=== PATIENT | female | born 1995 | race Caucasian/White ===

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

== ENCOUNTER 2017-09-22 10:42 | Emergency (ER) | payer OTHER ==
[2017-09-22 10:49] VITALS: RESP 16
[2017-09-22] MEDS ORDERED: NS 1,000 ML IV ONE ×2 (11:06→18:23)
--- NOTE | 2017-09-22 11:06 | EDPHY ---
H & P Stated Complaint: h/a, chills, bodyaches x 2 days Source: Patient Exam Limitations: No limitations - Personal History LMP (Females 10-55): Unknown Current Tetanus/Diphtheria Vaccine: No Current Tetanus Diphtheria and Acellular Pertussis (TDAP): No Tetanus Vaccine Date: WITHIN 10 YRS - Medical/Surgical History Hx Asthma: No Hx Chronic Respiratory Disease: No Hx Diabetes: No Hx Cardiac Disease: No Hx Renal Disease: No Hx Cirrhosis: No Hx Alcoholism: No Hx HIV/AIDS: No Hx Splenectomy or Spleen Trauma: No Other PMH: ANXIETY/DEPRESSION, DELAYED GASTRIC EMPTY - Social History Smoking Status: Never smoked Time Seen by Provider: 09/22/17 11:05 HPI/ROS: CHIEF COMPLAINT: Fever, chills, myalgias, headache HISTORY OF PRESENT ILLNESS: The patient presents to the ED with a 2 day history of fever, chills, myalgias and headache. The patient denies cough, abdominal pain, vomiting or diarrhea. The patient denies dysuria. The patient reportedly has been taking Tylenol and ibuprofen with minimal improvement of her symptoms. The patient denies significant past medical history. The patient reports her headache is mild in nature. She does not have neck stiffness. She denies any numbness or weakness. She denies additional acute complaints. REVIEW OF SYSTEMS: A comprehensive 10 point review of systems is otherwise negative aside from elements mentioned in the history of present illness. (Allen Holguin) - Physical Exam Exam: General Appearance: Alert, no distress Eyes: Pupils equal and round no pallor or injection ENT, Mouth: Mucous membranes moist Respiratory: There are no retractions, lungs are clear to auscultation Cardiovascular: Regular rate and rhythm Gastrointestinal: Abdomen is soft and nontender, no masses, bowel sounds normal Neurological: A&O, normal motor function, normal sensory exam, normal cranial nerves Skin: Warm and dry, no rashes Musculoskeletal: Neck is supple nontender Extremities: symmetrical, full range of motion (lAlen Holguin) Constitutional: Initial Vital Signs Temperature (C) 37.3 C 09/22/17 10:46 Heart Rate 108 H 09/22/17 10:46 Respiratory Rate 16 09/22/17 10:46 Blood Pressure 88/60 L 09/22/17 10:46 O2 Sat (%) 97 09/22/17 10:46 O2 Delivery Mode Room Air Allergies/Adverse Reactions: FERRAHEME Allergy (Uncoded 09/22/17 10:45) Home Medications: Medication Instructions Recorded [place] Carbonate 09/22/17 Medical Decision Making - Diagnostics Imaging Results: Imaging Impressions Lumbar Puncture 09/22/17 00:00 Impression: 1. Lumbar puncture performed at L3-L4. 2. Clear CSF obtained. 3. Opening pressure is 7. ED Course/Re-evaluation: The patient presents to the ED for evaluation of a headache and reported fever to 101 degrees. The patient has had no significant infectious symptoms aside from myalgias. She denies fever, cough or congestion. She has no history of rhinorrhea, vomiting or diarrhea. She denies dysuria. The patient does complain of some diffuse myalgias in her back primarily in her lumbar paraspinal muscles. The patient denies any arthralgias or obvious joint effusions. She denies any recent travel outside the [place] or antibiotic use. The patient was noted to have only mild pain with full forward flexion on neck exam. I discussed with the patient the risks and benefits of performing lumbar puncture. I am suspicious that this is most likely a viral syndrome however have informed the family that I cannot fully exclude the possibility of bacterial meningitis. A LP has been ordered under fluoroscopic guidance. The patient will be turned over to Dr. Manzano at shift change pending the results of the patient's lumbar puncture results. The patient was medicated with IV Toradol and normal saline in the emergency department. (Allen Holguin) Differential Diagnosis: Differential diagnosis considered includes viral syndrome, viral meningitis, bacterial meningitis, influenza, pyelonephritis (Allen Holguin) Other Provider: Patient was signed out to me by Dr. Holguin at 3:00 p.m. Pending results of lumbar puncture with plan for likely discharge home with diagnosis of viral syndrome if no abnormalities are seen. The lumbar puncture analysis reveals no white blood cells and a negative Gram stain so I do not think this represents meningitis. On re-evaluation, the patient still has a mild fever and complains of diffuse body aches but she has no neurologic abnormalities and would like to go home. I discussed our findings in detail with the patient's mother who is a physician she is in agreement with the plan. We did discuss that neuro imaging with CT scan or MRI briefly, but she would prefer to avoid this for now. We discussed strict return precautions. (Jason Manzano) - Data Points Laboratory Results: Laboratory Results 09/22/17 11:18 09/22/17 11:18 09/22/17 09/22/17 09/22/17 15:35 13:41 12:27 WBC RBC Hgb Hct MCV MCH MCHC RDW Plt Count MPV Neut % (Auto) Lymph % (Auto) [place] % (Auto) Eos % (Auto) Baso % (Auto) Nucleat RBC Rel Count Absolute Neuts (auto) Absolute Lymphs (auto) Absolute Monos (auto) Absolute Eos (auto) Absolute Basos (auto) Absolute Nucleated RBC Immature Gran % Immature Gran # Sodium Potassium Chloride Carbon Dioxide Anion Gap BUN Creatinine Estimated GFR Glucose Calcium Beta HCG, Qual Urine Color YELLOW Urine Appearance CLEAR Urine pH 8.0 H (5.0-7.5) Ur Specific [place] 1.013 (1.002-1.030) Urine Protein NEGATIVE (NEGATIVE) Urine Ketones NEGATIVE (NEGATIVE) Urine Blood NEGATIVE (NEGATIVE) Urine Nitrate NEGATIVE (NEGATIVE) Urine Bilirubin NEGATIVE (NEGATIVE) Urine Urobilinogen NEGATIVE EU EU (0.2-1.0) Ur Leukocyte Esterase TRACE H (NEGATIVE) Urine RBC 1-3 /hpf /hpf (0-3) Urine WBC 3-5 /hpf H /hpf (0-3) Ur Epithelial Cells TRACE /lpf /lpf (NONE-1+) Urine Mucus 1+ /lpf /lpf (NONE-1+) Urine Glucose NEGATIVE (NEGATIVE) CSF Tube Number 1 4 CSF Appearance CLEAR CLEAR (CLEAR) (CLEAR) CSF Color COLORLESS COLORLESS (COLORLESS) (COLORLESS) CSF Supernatant COLORLESS COLORLESS (COLORLESS) (COLORLESS) CSF WBC 3 /mm3 /mm3 0 /mm3 /mm3 (0-5) (0-5) CSF RBC 0 /mm3 /mm3 8 /mm3 H /mm3 (0-0) (0-0) CSF Glucose 53 mg/dL mg/dL (50-75) CSF Total Protein 24 mg/dL mg/dL (12-60) Nasal Influenza A PCR Nasal Influenza B PCR 09/22/17 09/22/17 09/22/17 11:18 11:18 11:18 WBC 11.40 10^3/uL H 10^3/uL (3.80-9.50) RBC 4.83 10^6/uL 10^6/uL (4.18-5.33) Hgb 13.4 g/dL g/dL (12.6-16.3) Hct 40.1 % % (38.0-47.0) MCV 83.0 fL fL (81.5-99.8) MCH 27.7 pg L pg (27.9-34.1) MCHC 33.4 g/dL g/dL (32.4-36.7) RDW 13.2 % % (11.5-15.2) Plt Count 217 10^3/uL 10^3/uL (150-400) MPV 10.6 fL fL (8.7-11.7) Neut % (Auto) 87.9 % H % (39.3-74.2) Lymph % (Auto) 6.0 % L % (15.0-45.0) [place] % (Auto) 5.4 % % (4.5-13.0) Eos % (Auto) 0.0 % L % (0.6-7.6) Baso % (Auto) 0.2 % L % (0.3-1.7) Nucleat RBC Rel Count 0.0 % % (0.0-0.2) Absolute Neuts (auto) 10.03 10^3/uL H 10^3/uL (1.70-6.50) Absolute Lymphs (auto) 0.68 10^3/uL L 10^3/uL (1.00-3.00) Absolute Monos (auto) 0.61 10^3/uL 10^3/uL (0.30-0.80) Absolute Eos (auto) 0.00 10^3/uL L 10^3/uL (0.03-0.40) Absolute Basos (auto) 0.02 10^3/uL 10^3/uL (0.02-0.10) Absolute Nucleated RBC 0.00 10^3/uL 10^3/uL (0-0.01) Immature Gran % 0.5 % % (0.0-1.1) Immature Gran # 0.06 10^3/uL 10^3/uL (0.00-0.10) Sodium 138 mEq/L mEq/L (135-145) Potassium 4.1 mEq/L mEq/L (3.5-5.2) Chloride 101 mEq/L mEq/L (97-110) Carbon Dioxide 24 mEq/l mEq/l (22-31) Anion Gap 13 mEq/L mEq/L (8-16) BUN 9 mg/dL mg/dL (7-23) Creatinine 0.6 mg/dL mg/dL (0.6-1.0) Estimated GFR > 60 Glucose 93 mg/dL mg/dL (70-100) Calcium 8.7 mg/dL mg/dL (8.5-10.4) Beta HCG, Qual NEGATIVE Urine Color Urine Appearance Urine pH Ur Specific [place] Urine Protein Urine Ketones Urine Blood Urine Nitrate Urine Bilirubin Urine Urobilinogen Ur Leukocyte Esterase Urine RBC Urine WBC Ur Epithelial Cells Urine Mucus Urine Glucose CSF Tube Number CSF Appearance CSF Color CSF Supernatant CSF WBC CSF RBC CSF Glucose CSF Total Protein Nasal Influenza A PCR Nasal Influenza B PCR 09/22/17 11:18 WBC RBC Hgb Hct MCV MCH MCHC RDW Plt Count MPV Neut % (Auto) Lymph % (Auto) [place] % (Auto) Eos % (Auto) Baso % (Auto) Nucleat RBC Rel Count Absolute Neuts (auto) Absolute Lymphs (auto) Absolute Monos (auto) Absolute Eos (auto) Absolute Basos (auto) Absolute Nucleated RBC Immature Gran % Immature Gran # Sodium Potassium Chloride Carbon Dioxide Anion Gap BUN Creatinine Estimated GFR Glucose Calcium Beta HCG, Qual Urine Color Urine Appearance Urine pH Ur Specific [place] Urine Protein Urine Ketones Urine Blood Urine Nitrate Urine Bilirubin Urine Urobilinogen Ur Leukocyte Esterase Urine RBC Urine WBC Ur Epithelial Cells Urine Mucus Urine Glucose CSF Tube Number CSF Appearance CSF Color CSF Supernatant CSF WBC CSF RBC CSF Glucose CSF Total Protein Nasal Influenza A PCR NEGATIVE FOR FLU A (NEGATIVE) Nasal Influenza B PCR NEGATIVE FOR FLU B (NEGATIVE) Microbiology Results: MICROBIOLOGY 09/22/17 15:35 Cerebral Spinal Fluid Gram Stain - Final Medications Given: Discontinued Medications Acetaminophen (Tylenol) 1,000 mg PO EDNOW ONE Stop: 09/22/17 17:09 Last Admin: 09/22/17 17:11 Dose: 1,000 mg Diphenhydramine HCl (Benadryl Injection) 25 mg IVP EDNOW ONE Stop: 09/22/17 16:20 Last Admin: 09/22/17 16:26 Dose: 25 mg Sodium Chloride (Ns) 1,000 mls @ 0 mls/hr IV ONCE ONE; Wide Open PRN Reason: Protocol Stop: 09/22/17 11:07 Last Admin: 09/22/17 11:21 Dose: 1,000 mls Sodium Chloride (Ns) 1,000 mls @ 0 mls/hr IV ONCE ONE; Wide Open PRN Reason: Protocol Stop: 09/22/17 11:07 Last Admin: 09/22/17 11:21 Dose: 1,000 mls Ketorolac Tromethamine (Toradol) 30 mg IVP EDNOW ONE Stop: 09/22/17 11:53 Last Admin: 09/22/17 11:58 Dose: 30 mg Metoclopramide HCl (Reglan Injection) 10 mg IVP EDNOW ONE Stop: 09/22/17 16:20 Last Admin: 09/22/17 16:26 Dose: 10 mg Morphine Sulfate (Morphine) 4 mg IVP EDNOW ONE Stop: 09/22/17 14:04 Last Admin: 09/22/17 14:11 Dose: 4 mg Ondansetron HCl (Zofran) 4 mg IVP EDNOW ONE Stop: 09/22/17 14:04 Last Admin: 09/22/17 14:11 Dose: 4 mg Departure - Departure Disposition: Home, Routine, Self-Care Clinical Impression: Viral syndrome, Headache Condition: Good Instructions: Acute Headache (ED), Viral Syndrome (ED) Additional Instructions: Use ibuprofen and Tylenol as needed for fever and body aches. Follow up with your primary care physician within 72 hours for reevaluation. Drink plenty of fluids. Return to the emergency department immediately for high fever, severe headache or neck pain, difficulty breathing, abdominal pain, rash or other worsening of condition. Referrals: NONE *PRIMARY CARE P,. [Primary Care Provider] - As per Instructions
[2017-09-22] MEDS: NS 1,000 ML IV ONE ×2 (11:21→18:41)
[2017-09-22 11:30] LABS: PLATELET COUNT 217 10^3/uL (150-400)
[2017-09-22] MEDS ORDERED: KETOROLAC 30 MG/1 ML SDV IVP ONE (11:52)
[2017-09-22] MEDS ORDERED: LIDOCAINE 1% 300 MG/30 ML SDV ONE ×2 (13:52→14:39)
[2017-09-22] MEDS ORDERED: ONDANSETRON 4 MG/2 ML VIAL IVP ONE (14:03)
[2017-09-22] MEDS ORDERED: METOCLOPRAMIDE 10 MG/2 ML VIAL IVP ONE (16:19)
[2017-09-22 16:26] VITALS: O2SAT 95
[2017-09-22] MEDS ORDERED: ACETAMINOPHEN 500 MG TAB PO ONE (17:08)
[2017-09-22] MEDS ORDERED: ACETAMINOPHEN 500 MG TAB ONE (17:09)
[2017-09-22] MEDS ORDERED: IBUPROFEN 200 MG TAB PO ONE (18:15)
[2017-09-22 19:56] VITALS: BP 101/68; PULSE 88; TEMP 98.8
== END 2017-09-22 19:55 | disposition home or self-care (01) ==
DX: B34.9 Viral infection, unspecified (principal); E86.9 Volume depletion, unspecified
CPT/HCPCS: 96374; J1200; J1885; J2270; J2405; J2765

== ENCOUNTER 2017-10-02 16:13 | Inpatient (IN) | payer OTHER ==
[2017-10-02] MEDS ORDERED: NS 1,000 ML IV ONE ×2 (16:32→18:15)
--- NOTE | 2017-10-02 16:56 | EDPHY ---
H & P Stated Complaint: fevers MURPHY for the past week, and now pelvic pain. here 09/22 - Personal History Current Tetanus/Diphtheria Vaccine: Yes Current Tetanus Diphtheria and Acellular Pertussis (TDAP): Yes Tetanus Vaccine Date: WITHIN 10 YRS - Medical/Surgical History Hx Asthma: No Hx Chronic Respiratory Disease: No Hx Diabetes: No Hx Cardiac Disease: No Hx Renal Disease: No Hx Cirrhosis: No Hx Alcoholism: No Hx HIV/AIDS: No Hx Splenectomy or Spleen Trauma: No Other PMH: ANXIETY/DEPRESSION, DELAYED GASTRIC EMPTY - Social History Smoking Status: Never smoked Time Seen by Provider: 10/02/17 16:22 HPI/ROS: Chief complaint: Pelvic pain History of present illness: This is a 22-year-old female who presents to the emergency department for evaluation of pelvic pain. She reports the onset of symptoms over the last few days although she has a hard time identifying exactly when it started as she just finished her menstrual cycle and had associated menstrual cramping. She describes discomfort all across her pelvis. She denies any precipitating factors. She denies any alleviating or aggravating factors. She denies associated signs or symptoms including no abnormal vaginal discharge, no urinary symptoms, no diarrhea or constipation. She was seen here last week for fever and headache and had an extensive workup. She continues to have the fever and headache as well and those symptoms continue to wax and wane in intensity. Review of systems: A 10 point review of systems was obtained and other than described above was negative (Titi Nelson) - Physical Exam Exam: General Appearance: Alert, nontoxic. Eyes: Pupils equal and round no pallor or injection. ENT, Mouth: Mucous membranes moist. Respiratory: There are no retractions, lungs are clear to auscultation. Cardiovascular: Regular rate and rhythm. Gastrointestinal: Bowel sounds are normal. Abdomen is soft and nondistended. There is diffuse tenderness primarily in the lower quadrants bilaterally. Neurological: Alert and oriented x4. Strength and sensation intact and symmetrical. No meningismus. Skin: Warm and dry, no rashes. Musculoskeletal: Neck is supple non tender. Extremities are symmetrical, full range of motion. Psychiatric: Patient is oriented X 3, there is no agitation. (Titi Nelson) Constitutional: Initial Vital Signs Temperature (C) 37.1 C 10/02/17 16:17 Heart Rate 133 H 10/02/17 16:17 Respiratory Rate 20 10/02/17 16:17 Blood Pressure 109/65 10/02/17 16:17 O2 Sat (%) 96 10/02/17 16:17 O2 Delivery Mode Nasal Cannula O2 (L/minute) 2 Allergies/Adverse Reactions: FERRAHEME Allergy (Severe, Uncoded 10/02/17 21:05) Anaphylaxis Home Medications: Medication Instructions Recorded FLUoxetine HCL [Fluoxetine HCl] 80 mg PO HS 10/02/17 Fairlee Carbonate ER [Eskalith Cr 450 mg PO HS 10/02/17 450 mg (*)] [place]-28 1 tab PO HS 10/02/17 traZODone [traZODONE 50MG (*)] 50 mg PO HS 10/02/17 Amoxicillin/Clavulanate Pot 875 mg PO BID 11 Days #22 tab 10/05/17 [Augmentin 875 MG TAB (*)] Doxycycline Hyclate [Vibramycin 100 mg PO BID 11 Days capsule 10/05/17 100 MG (*)] Medical Decision Making - Diagnostics Imaging: Discussed imaging studies w/ grain mill products inspector Radiologist Procedures: Pelvic Exam: The vulva was normal no lesions. The vagina had white and trace yellow discharge. The cervix was closed no bleeding, white and yellow discharge noted. The uterus was normal size, there was cervical motion tenderness. The adnexa had no masses and no tenderness. The exam was performed with a personal care assistant. (Titi Nelson) ED Course/Re-evaluation: Patient is discussed with my primary supervising physician Dr. Kim Friend. Patient presents to the emergency department for pelvic pain. She is unwell but nontoxic appearing. Ultimately evaluation is concerning for severe pelvic [place] [id number], CT scan showing pelvic inflammation and significant cervical motion tenderness and vaginal discharge. Blood cultures are obtained. Vaginal swabs obtained although due to level of discomfort these were difficult. Patient is started cefoxitin and Flagyl IV and oral doxycycline. Consulted with OBGYN Dr. Foreman who is kindly agreed to admit this patient for further evaluation and care. The plan has been discussed with the patient and her mother who voiced understanding and agreement with it. (Titi Nelson) This pt was seen and examined by me. Non-toxic appearing, abd soft, diffuse lower abd/pelvic tenderness without peritoneal signs. Clinical presentation c/ w PID, cultures pending. I agree with Titi Nelson's assessment and plan. (Kim Friend) Differential Diagnosis: Included but not limited to pelvic inflammatory disease, vaginal infections, tubo-ovarian abscess, with associated complications, colitis, appendicitis, diverticulitis, urinary tract disease including infection and stone (Titi Nelson) - Data Points Laboratory Results: Laboratory Results 10/02/17 17:15 10/02/17 17:15 Medications Given: Discontinued Medications Acetaminophen (Tylenol) 1,000 mg PO EDNOW ONE Stop: 10/02/17 18:34 Last Admin: 10/02/17 19:29 Dose: 1,000 mg Acetaminophen (Tylenol) 1,000 mg PO Q6HRS PRN PRN Reason: Pain, Mild/Fever, Can Take PO Stop: 03/31/18 21:48 Last Admin: 10/04/17 15:10 Dose: 1,000 mg Doxycycline Hyclate (Doxycycline Hyclate) 100 mg PO EDNOW ONE PRN Reason: Protocol Stop: 10/02/17 19:36 Last Admin: 10/02/17 19:54 Dose: 100 mg Doxycycline Hyclate (Doxycycline Hyclate) 100 mg PO BID HARRIET PRN Reason: Protocol Stop: 11/02/17 08:59 Last Admin: 10/05/17 09:03 Dose: 100 mg Fluoxetine HCl (Prozac) 80 mg PO HS HARRIET Stop: 03/31/18 22:59 Last Admin: 10/04/17 21:25 Dose: 80 mg Hydromorphone HCl (Dilaudid) 0.5 mg IVP EDNOW ONE Stop: 10/02/17 18:33 Last Admin: 10/02/17 19:29 Dose: 0.5 mg Hydromorphone HCl (Dilaudid) 2 mg IVP Q4HRS PRN PRN Reason: Pain, Severe Unable to Take PO Stop: 10/12/17 21:50 Last Admin: 10/02/17 22:23 Dose: 2 mg Sodium Chloride (Ns) 1,000 mls @ 0 mls/hr IV EDNOW ONE; Wide Open PRN Reason: Protocol Stop: 10/02/17 16:33 Last Admin: 10/02/17 17:24 Dose: 1,000 mls Sodium Chloride (Ns) 1,000 mls @ 0 mls/hr IV EDNOW ONE; Wide Open PRN Reason: Protocol Stop: 10/02/17 18:16 Last Admin: 10/02/17 18:38 Dose: 1,000 mls Cefoxitin Sodium 2 gm/ Sterile (Water) 21 mls @ 252 mls/hr IV EDNOW ONE PRN Reason: Protocol Stop: 10/02/17 19:37 Last Admin: 10/02/17 19:55 Dose: 21 mls Metronidazole/Sodium Chloride (Flagyl 500 Mg (Premix)) 100 mls @ 100 mls/hr IV EDNOW ONE PRN Reason: Protocol Stop: 10/02/17 20:29 Last Admin: 10/02/17 19:52 Dose: 100 mls Cefoxitin Sodium 2 gm/ Sterile (Water) 21 mls @ 252 mls/hr IV Q6HRS HARRIET PRN Reason: Protocol Stop: 11/02/17 00:00 Last Admin: 10/05/17 13:42 Dose: Not Given Sodium Chloride (Ns) 1,000 mls @ 125 mls/hr IV CONT HARRIET Stop: 03/31/18 21:59 Last Admin: 10/03/17 15:39 Dose: 1,000 mls Ibuprofen (Motrin) 600 mg PO EDNOW ONE Stop: 10/02/17 20:24 Last Admin: 10/02/17 20:26 Dose: 600 mg Ibuprofen (Motrin) 600 mg PO Q6H PRN PRN Reason: PAIN, MILD Stop: 04/01/18 08:25 Last Admin: 10/05/17 09:03 Dose: 600 mg Ketorolac Tromethamine (Toradol) 15 mg IVP EDNOW ONE Stop: 10/02/17 17:30 Last Admin: 10/02/17 17:34 Dose: 15 mg Fairlee Carbonate (Eskalith Cr) 450 mg PO HS HARRIET Stop: 03/31/18 22:44 Last Admin: 10/04/17 21:26 Dose: 450 mg Metoclopramide HCl (Reglan Injection) 10 mg IVP EDNOW ONE Stop: 10/02/17 21:01 Last Admin: 10/02/17 23:37 Dose: Not Given Miscellaneous Medication ([place]-28) 1 tab PO HS HARRIET Stop: 04/01/18 20:59 Last Admin: 10/04/17 21:29 Dose: 1 tab Ondansetron HCl (Zofran) 4 mg IVP EDNOW ONE Stop: 10/02/17 17:31 Last Admin: 10/02/17 17:34 Dose: 4 mg Ondansetron HCl (Zofran) 4 mg IVP EDNOW ONE Stop: 10/02/17 18:33 Last Admin: 10/02/17 19:29 Dose: 4 mg Ondansetron HCl (Zofran Odt) 4 mg PO Q4 PRN PRN Reason: Nausea/Vomiting, Use 1st Stop: 04/02/18 12:37 Last Admin: 10/05/17 12:44 Dose: 4 mg Polyethylene Glycol (Miralax) 17 gm PO DAILY HARRIET Stop: 04/02/18 08:59 Last Admin: 10/05/17 09:03 Dose: 17 gm Promethazine HCl (Phenergan) 12.5 mg IVP Q6HRS PRN PRN Reason: Nausea/Vomiting, Can't Take PO Stop: 03/31/18 21:50 Last Admin: 10/02/17 22:22 Dose: 12.5 mg Trazodone HCl (Trazodone) 50 mg PO HS [facility] Stop: 03/31/18 22:44 Last Admin: 10/04/17 21:26 Dose: 50 mg Departure - Departure Disposition: [facility] Inpatient Acute Clinical Impression: Pelvic inflammatory disease (PID) Condition: Good
[2017-10-02] MEDS ORDERED: KETOROLAC 15 MG/1 ML SDV IVP ONE (17:29)
[2017-10-02 17:30] LABS: PLATELET COUNT 368 10^3/uL (150-400)
[2017-10-02] MEDS ORDERED: ONDANSETRON 4 MG/2 ML VIAL IVP ONE ×2 (17:30→18:32)
[2017-10-02] MEDS ORDERED: IOPAMIDOL (ISOVUE-300) 100 ML BTL ONE (18:19)
[2017-10-02] MEDS ORDERED: HYDROmorphONE/DILAUDID 2 MG/ML INJ IVP ONE (18:32)
[2017-10-02] MEDS ORDERED: ACETAMINOPHEN 500 MG TAB PO ONE (18:33)
[2017-10-02] MEDS ORDERED: cefOXitin SODIUM 2 GM in STERILE WATER INJ 21 ML IV ONE (19:33)
[2017-10-02] MEDS ORDERED: DOXYCYCLINE HYCLATE 100 MG CAP/TAB PO ONE (19:35)
[2017-10-02] MEDS ORDERED: IBUPROFEN 600 MG TAB PO ONE (20:23)
[2017-10-02] MEDS ORDERED: METOCLOPRAMIDE 10 MG/2 ML VIAL IVP ONE (21:00)
[2017-10-02] MEDS ORDERED: DOXYCYCLINE INJ 100 MG in NS 250 ML IV SCH (21:00)
--- NOTE | 2017-10-02 21:25 | GHP ---
[f rep st] HISTORY AND PHYSICAL DATE OF ADMISSION: 10/02/2017 ADMITTING DIAGNOSES: 1. Pelvic pain. 2. Leukocytosis. 3. Pelvic inflammatory disease. HISTORY OF PRESENT ILLNESS: Patient is a 22-year-old nulliparous female with last menstrual period 09/27/17, [facility] of [facility]. She noticed the pelvic pain was worse this afternoon at school with radiation to her back. She also noted fevers and chills and had a Temp of 103.3. She called her mother and came to the ED. There are no alleviating factors. Minimal relief with Tylenol and Motrin. There are no exacerbating factors. She does endorse nausea, but no vomiting. Denies any abnormal vaginal discharge, or any GI or symptoms. The patient is sexually active and last encounter was on '. They did not use a condom. She has had multiple partners since she broke up with her boyfriend about 6 months ago. She denies any exposure to sexually transmitted diseases. She is currently on the pill and ran out of refills and restarted the pill in August. She was seen in the emergency room a week prior with fevers and a headache and had a negative workup, including a lumbar puncture. Dilaudid did relieve her pain in the ED, but it made her dizzy. Nausea somewhat improved with Zofran. Life Enrichment Manager - Dr. Franco. PAST OBSTETRICAL HISTORY: The patient is nulliparous. GYNECOLOGIC HISTORY: Age of menarche is 16. Cycles are regular every 28 days x 6-7 days. Last cycles was longer 45 days since she stopped the pill. The patient has never had a Pap smear and denies any exposure to sexually transmitted diseases. PAST MEDICAL HISTORY: Includes anxiety, depression, and delayed gastric emptying. PAST SURGICAL HISTORY: Unremarkable. CURRENT MEDICATIONS: [place], Prozac and [place]-28. ALLERGIES: Feraheme. SOCIAL HISTORY: The patient is a connie at , and is studying Psychology. She denies any alcohol, tobacco, or illicit drug use. IMMUNIZATIONS: All vaccines are up to date. Unsure about Gardasil vaccine. FAMILY HISTORY: Noncontributory. LABORATORY DATA: White count 23.7, H and H 12.5/37.1. BMP is normal. Qual_ Beta hCG is negative. UA is negative. Wet prep reveals no WBCs, no yeast, no clue cells; there is 3+ epithelial cells, and 1+ bacteria. GC and chlamydia cultures are pending, as well as blood cultures. STUDIES: On transvaginal ultrasound, uterus measures 6 x 2 x 3 cm with no masses. Endometrial stripe is thin, and homogeneous and 2 mm. Right and left ovaries are normal with no masses. No free fluid. On CT scan, there is diffuse inflammatory infiltration of the fat within the pelvis consistent with PID. There are no discrete abscesses. No free air. The appendix appears normal. REVIEW OF SYSTEMS: A 10-point review of systems is negative. Pertinent positives noted in HPI. PHYSICAL EXAMINATION: VITAL SIGNS: On admission, temperature is 37.1, heart rate 133, respiratory rate 20, blood pressure 109/65. GENERAL: Well-nourished , well-developed female. She is ill-appearing. CARDIOVASCULAR: Regular rate and rhythm. PULMONARY: Lungs are clear to auscultation bilaterally. ABDOMEN: Soft, nondistended, moderate tenderness lower quadrants, no rebound or guarding. PELVIC: On BME, she has tenderness; uterus is small, AV, mobile, and tender. There are no adnexal masses noted. EXTREMITIES: Normal to inspection without calf tenderness or edema. ASSESSMENT: The patient is a 22-year-old with pelvic pain and leukocytosis, suspicious for pelvic inflammatory disease. PLAN: 1. Admit to [facility], inpatient. 2. Will treat with Abx - Cefoxitin 2 gm IV q.6 hours and Doxy 100 mg p.o. q.12 hours. 3. Await GC, chlamydia culture results. 4. Tylenol as needed for MURPHY and fevers. 5. Analgesics prn- will continue Dilaudid IV for now. 6. Antiemetics prn. 7. Should see an improvement in symptoms within 24-48 hours of IV antibiotics. 8. Will check repeat CBC in a.m. and monitor leukocytosis to see if trending down. /[id number]/MODL MTDD
[2017-10-02] MEDS ORDERED: PROMETHAZINE HCL 25 MG/ML INJ IVP PRN (21:51)
[2017-10-02] MEDS ORDERED: HYDROmorphONE/DILAUDID 2 MG/ML INJ IVP PRN (21:51)
[2017-10-02] MEDS: NS 1,000 ML IV SCH (22:23)
[2017-10-02] MEDS: LITHIUM CARBONATE ER 450 MG TAB PO SCH ×2 (22:45→22:53)
[2017-10-02] MEDS: traZODone 50 MG TAB PO SCH (22:54)
[2017-10-02] MEDS: FLUoxetine 20 MG CAP PO SCH (22:54)
[2017-10-03] MEDS: cefOXitin SODIUM 2 GM in STERILE WATER INJ 21 ML IV SCH ×4 (01:11→17:54)
[2017-10-03] MEDS: ACETAMINOPHEN 500 MG TAB PO PRN ×2 (04:53→15:59)
--- NOTE | 2017-10-03 04:53 | PDMN ---
Medical Necessity Medical necessity: Patient meets inpatient criteria per physician note and [facility] -260 PID, Acute ( worsening pelvic pain: leukocytosis/WBC > 23,000; ongoing tachycardia after initial treatment, T to 103.3; anticipated LOS > 2 midnights for ongoing IV antibiotics, IV Dilaudid and Phenergan.)
[2017-10-03 05:32] LABS: PLATELET COUNT 271 10^3/uL (150-400)
[2017-10-03] MEDS: NS 1,000 ML IV SCH ×2 (06:01→15:39)
[2017-10-03] MEDS: DOXYCYCLINE HYCLATE 100 MG CAP/TAB PO SCH ×2 (08:30→21:34)
[2017-10-03] MEDS: IBUPROFEN 600 MG TAB PO PRN ×3 (08:35→21:31)
[2017-10-03 13:03] LABS: GC AMPLIFICATION GENPROBE NEGATIVE (NEGATIVE)
[2017-10-03 15:13] LABS: PLATELET COUNT 286 10^3/uL (150-400)
[2017-10-03 16:23] LABS: HEPATITIS B SURFACE ANTIGEN NEGATIVE (NEGATIVE)
[2017-10-03 16:41] LABS: HEPATITIS C ANTIBODY TOTAL NEGATIVE (NEGATIVE); HIV TYPE 1 AND 2 NEGATIVE (NEGATIVE)
[2017-10-03 18:51] LABS: PLATELET COUNT 268 10^3/uL (150-400)
--- NOTE | 2017-10-03 19:03 | SOAPPROG ---
SOAP Progress Note Assessment/Plan: Assessment: LATE NOTE WRITTEN - PT SEEN AT 12:30 HD 1 with IV abx for PID pelvic pain improved today h/o recurrent fevers/MURPHY since 09/22 WBCs improving STDs ordered on lab from last noc Plan: recheck CBC later with persistent fevers will get ID consult....complicated story - suspect viral issue since 09/22 now with PID 10/03/17 18:59 Subjective: Pt reports pelvic pain has lessened from last noc. No MURPHY now but this am with fever spike, pt had intense MURPHY again (01/09) like it was last noc. Pt reports waxing and waning fevers up to 102 with intense HAs since ER evaluation on 09/22 (WBCs then were 11K and LP negative) Pelvic pain only started yesterday - no discharge or odor or itch/burn. Has pressure on bladder and feels she doesn't really empty well but no dysuria. No bleeding Disc getting ID consult to confirm nothing more complicated - assured pt that temps might still wax/wane but should defervesce. Reassured don't feel any signs of sepsis at this point - vitals stable. Objective: Vital Signs Temp Pulse Resp BP Pulse Ox 36.9 C 92 18 100/62 96 10/03/17 16:30 10/03/17 16:30 10/03/17 16:30 10/03/17 16:30 10/03/17 16:30 Laboratory Results 10/03/17 18:15 10/02/17 10/03/17 10/04/17 05:59 05:59 05:59 Intake Total 1000 1021 Balance 1000 1021 Physical Exam - Physical Exam General Appearance: WD/WN, alert, mild distress Abdomen: non-tender (low abd tenderness diffusely - mild), soft Pelvic Exam: other (see above, pelvic deferred) Skin: normal color, warm/dry Extremities: non-tender, pedal edema (none) Neuro/Psych: alert, normal mood/affect ICD10 Worksheet Patient Problems: Problems Problem Status Onset Pelvic inflammatory disease (PID) Acute
--- NOTE | 2017-10-03 20:14 | GCON ---
[f rep st] CONSULTATION DATE OF CONSULTATION: 10/03/2017 PHYSICIAN REQUESTING CONSULTATION: Veronica Esparza. REASON FOR CONSULTATION: Fever and pelvic inflammatory disease. HISTORY OF PRESENT ILLNESS: This is a 22-year-old woman who was generally healthy until approximatel y 09/21/2017 when she developed fever and headache. Her headache was so severe, she presented to the emergency room here at [facility] where she underwent a lumbar puncture, which was negative. An influenza PCR which was also negative. Patient was noted to have normal LFTs and a slightly elevated white cou nt. Patient was discharged with a diagnosis of viral syndrome. The patient symptomatically improved the and on the continued to improve and on the was a lot better and was back to some regular activities. On the , fever returned to 102 associated with a severe headache and the res t of the week she had low energy with temperatures to 199. Treated with scheduled Tylenol and NSAIDs . She transiently felt better on October 01, but suddenly developed severe pelvic pain in the morning on October 02. She presented to the emergency room where she underwent workup for abdominal and pelvic pain including an abdominal ultrasound, pelvic ultrasound, and abdominal CT. Abdominal ultrasound an d pelvic ultrasounds were normal. Her abdominal CT personally reviewed by me showed diffuse inflamma tion within the deep pelvis consistent with PID. No abscess. The patient has continued low pelvic p ain that is slightly better. She has some sensation of urinary fullness, but not dysuria. She has g eneralized achiness, but this is slowly improving. No weight loss. She has no upper respiratory sym ptoms. No diarrhea. Appetite is fair. Immediately prior to the onset of symptoms 09/27/2017, she h ad the onset of menses in which she was using tampons. Upon admission, the patient was started on cefoxitin 2 g IV q.6h and doxycycline 100 mg twice daily. She is generally slightly improved since admission. She has continued to have fevers, but she has b een admitted for less than 24 hours. PAST MEDICAL HISTORY: Anxiety, depression, delayed gastric emptying. PAST SURGICAL HISTORY: None. MEDICATIONS: Include lithium, Prozac, cefoxitin 2 g IV q. 6, doxycycline 100 mg twice daily. ALLERGIES: Feraheme. No antibiotic allergies. SOCIAL HISTORY: She is a connie at . She is studying psychology. She is originally from [place]. M mathieu to [place] at age 11. She is exposed to 3 cats, which are mother's. No recent scratching or bi ting. She traveled internationally to [facility] 10 months ago for a 10-day trip. No unusual exposures during that time. That trip was followed by a trip to [place] in the summertime. No alcohol, tobac co, or illicit drug use. She is sexually active and has had unprotected sex, but last sexual interco urse was [facility] and she used a condom. Her mother is a psychiatrist and her father is an OB. Patient endorses that she is heterosexual. REVIEW OF SYSTEMS: A complete 10-point review of systems was performed and is negative except as men tioned in the HPI. PHYSICAL EXAM: VITAL SIGNS: BP 109/68, heart rate in the 80s, respiratory rate 16, saturation 99% o n room air, temperature 36.9, T-max is 39.5. GENERAL: This is a young woman in no distress, lying i n bed, flat. HEENT: She has enlarged, noninflamed tonsils approximately 2 to 3+ bilaterally. No co njunctival hemorrhages. Neck was supple. Some mild tenderness to palpation, but no lymphadenopathy. CARDIOVASCULAR: Regular rate. No murmur. CHEST: Clear to auscultation bilaterally. ABDOMEN: P atient's abdomen was soft. She had no peritoneal signs. She had discomfort to palpation of her bila teral lower pelvic region without rebound. Bowel sounds were present. EXTREMITIES: No clubbing, cy anosis, or edema. No joint swelling. SKIN: She had no splinter hemorrhages, Janeway lesions, or pa lmar rashes. NEUROLOGICAL: She was alert and oriented x4 with fluent speech. Moving all 4 extremiti es equally. LABORATORY: White count 23 on admission, 21 this morning, 22 this afternoon. Hematocrit 34, neutrop hils of 90%, platelets of 287. Creatinine is 0.9. LFTs are within normal limits. Beta HCG is negat chreyl. Urinalysis was negative. Wet prep showed no Trichomonas. Chlamydia and gonorrhea: Gene probes are negative. HIV, hep C, and hep B surface antigen are pending. Blood cultures are pending. Resp iratory PCR panel from 10/02/2017 is negative. ASSESSMENT AND PLAN: This is a 22-year-old woman who is sexually active who presents with fever and lower pelvic pain, consistent with pelvic inflammatory disease. Evaluation for gonorrhea and chlamyd ia have been negative. Suspect typical geronimo of the gastrointestinal tract including Enterobacter, A CA, Streptococcus, and anaerobes. If inappropriate clinical response, could consider mycoplasma as a nother etiology which would not be covered by her current antibiotic regimen. Difficult to assess current clinical response. Patient is slightly better compared to admission with slightly less pelvic pain and improving overall heart rate. Persistent fever not unexpected at this short-term point. Would continue cefoxitin and doxycycline for now. Could consider adjustment to a n agent such as Azithromycin or moxifloxacin if continued fever and increasing concern of mycoplasma. We will continue to monitor blood cultures. Agree with complete sexually transmitted disease testi ng with human immunodeficiency virus, syphilis, immunoglobulin-G or RPR, and hepatitis C screen. Time was 75 minutes. Greater than 50% of time spent with education and counseling of the patient and her mother who was at bedside throughout the course regarding microbial makeup of pelvic inflammator y disease and pathogenesis. We will continue to monitor. /[id number]/MODL
[2017-10-03 21:16] LABS: HEPATITIS A ANTIBODY TOTAL POSITIVE (NEGATIVE)
[2017-10-03] MEDS: traZODone 50 MG TAB PO SCH (21:31)
[2017-10-03] MEDS: FLUoxetine 20 MG CAP PO SCH (21:31)
[2017-10-03] MEDS: LITHIUM CARBONATE ER 450 MG TAB PO SCH (21:31)
[2017-10-03 22:28] LABS: HEPATITIS A ANTIBODY IGM (BCH) NEGATIVE (NEGATIVE)
[2017-10-04] MEDS: cefOXitin SODIUM 2 GM in STERILE WATER INJ 21 ML IV SCH ×4 (00:16→18:23)
[2017-10-04] MEDS: ACETAMINOPHEN 500 MG TAB PO PRN ×3 (00:19→15:10)
[2017-10-04] MEDS: POLYETHYLENE GLYCOL 3350 17 GM PKT PO SCH (08:48)
[2017-10-04] MEDS: DOXYCYCLINE HYCLATE 100 MG CAP/TAB PO SCH ×2 (08:49→21:24)
--- NOTE | 2017-10-04 10:12 | PCMIDPN ---
Assessment/Plan: # PID: much improved pelvic pain, fever curve trending down --reviewed all STD testing with patient and mom, RPR still pending --continue IV cefoxitin, PO doxycycline and plan dc tomorrow on PO regimen - Discussed Augmentin + doxycycline [address] Cunningham --patient/mom okay with no further blood work --dc okay tomorrow prior to ID rounding Meds Cefoxitin #2 Doxycycline #2 micro 10/02 blood cx (2) NGTD Care coordinated with Dr. Cunningham and nursing Subjective: feeling better less pelvic pain appetite okay Objective: Vital Signs Temp Pulse Resp BP Pulse Ox 36.6 C 73 20 90/52 L 98 10/04/17 08:00 10/04/17 08:00 10/04/17 08:00 10/04/17 08:00 10/04/17 08:00 Laboratory Results 10/03/17 18:15 10/03/17 10/04/17 10/05/17 05:59 05:59 05:59 Intake Total 1000 1021 Balance 1000 1021 ESR 41 MM/HR (0-20) H 10/03/17 18:00 - Physical Exam General Appearance: alert, no apparent distress EENT: pharynx normal, No scleral icterus Respiratory: No accessory muscle use Abdomen: non-tender, soft, other (significantly less pain to palpation lower abdomen/suprapubic region), No guarding Pelvic Exam: No cortez Skin: normal color, warm/dry, No rash Neuro/Psych: alert, normal mood/affect, oriented x 3 - Time Spent With Patient Time Spent with Patient: greater than 35 minutes (reviewed lab results, plans for antibiotic therapy, reasons for antibiotic spectrum) Time Spent with Patient: Greater than 35 minutes spent on this patients care, greater than 50% of time spent counseling, educating, and coordinating care regarding the above mentioned plan. ICD10 Worksheet Patient Problems: Problems Problem Status Onset Pelvic inflammatory disease (PID) Acute
[2017-10-04] MEDS: ONDANSETRON DISINTEGRATING 4 MG TAB PO PRN (12:40)
[2017-10-04] MEDS: IBUPROFEN 600 MG TAB PO PRN ×2 (15:16→21:27)
--- NOTE | 2017-10-04 15:37 | SOAPPROG ---
SOAP Progress Note Assessment/Plan: Assessment: 22 y/o G0 Hospital day #2 secondary to PID on Cefoxitin and Doxycycline and improving. Plan: Will repeat CBC now and in am. Ibuprofen and Tylenol for MURPHY now and I encouraged patient to aggressively po hydrate. If temperature remains normal and symptoms improve, likely d/c home tomorrow on Augmentin and Doxycycline x 14 days. 10/04/17 15:38 Subjective: Pt says she is feeling worse this pm. She ambulated downstairs and felt increased nausea, dizziness and got a severe MURPHY. She says her MURPHY has waxed and waned over the last 2 weeks and it is her most bothersome symptom. She also reports dysuria and some pelvic pain. She is very happy her STD panal has been negative. Objective: Vital Signs Temp Pulse Resp BP Pulse Ox 36.6 C 89 17 100/61 96 10/04/17 12:00 10/04/17 12:00 10/04/17 12:00 10/04/17 12:00 10/04/17 12:00 Laboratory Results 10/03/17 18:15 10/03/17 10/04/17 10/05/17 05:59 05:59 05:59 Intake Total 1000 1021 Balance 1000 1021 - Time Spent With Patient Time Spent With Patient: 20 minutes - Pending Discharge Pending Discharge Within 24 Hours: Yes Pending Discharge Date: 10/05/17 Pending Discharge Time: 11:00 Physical Exam - Physical Exam General Appearance: WD/WN, alert, no apparent distress Neck: non-tender, full range of motion, supple Respiratory: chest non-tender, lungs clear, normal breath sounds Cardiac/Chest: regular rate, rhythm Abdomen: normal bowel sounds, soft, other (min tender, no rebound) ICD10 Worksheet Patient Problems: Problems Problem Status Onset Pelvic inflammatory disease (PID) Acute
[2017-10-04 16:08] LABS: PLATELET COUNT 316 10^3/uL (150-400)
[2017-10-04] MEDS: FLUoxetine 20 MG CAP PO SCH (21:25)
[2017-10-04] MEDS: traZODone 50 MG TAB PO SCH (21:26)
[2017-10-04] MEDS: LITHIUM CARBONATE ER 450 MG TAB PO SCH (21:26)
[2017-10-05] MEDS: cefOXitin SODIUM 2 GM in STERILE WATER INJ 21 ML IV SCH ×3 (00:09→13:42)
[2017-10-05 06:33] LABS: PLATELET COUNT 284 10^3/uL (150-400)
[2017-10-05 08:29] VITALS: BP 94/59; PULSE 69; RESP 17; TEMP 98.5; O2SAT 98
[2017-10-05] MEDS: DOXYCYCLINE HYCLATE 100 MG CAP/TAB PO SCH (09:03)
[2017-10-05] MEDS: POLYETHYLENE GLYCOL 3350 17 GM PKT PO SCH (09:03)
[2017-10-05] MEDS: IBUPROFEN 600 MG TAB PO PRN (09:03)
--- NOTE | 2017-10-05 09:53 | PCMIDPN ---
Assessment/Plan: # PID: much improved pelvic pain, resolved fever, normalized wbc --reviewed all STD testing with patient and mom, RPR still pending --DC on Augmentin 875mg PO BID + doxycycline 100mg pO BID [address] Cunningham --patient will follow up with me towards end of antibiotic therapy --discussed 1 mo until resumption of intercourse Meds Cefoxitin #3 Doxycycline #3 micro 10/02 blood cx (2) NGTD Subjective: feeling much better Objective: Vital Signs Temp Pulse Resp BP Pulse Ox 36.9 C 69 17 94/59 L 98 10/05/17 08:00 10/05/17 08:00 10/05/17 08:00 10/05/17 08:00 10/05/17 08:00 Laboratory Results 10/05/17 06:10 10/04/17 10/05/17 10/06/17 05:59 05:59 05:59 Intake Total 1021 84 Balance 1021 84 ESR 41 MM/HR (0-20) H 10/03/17 18:00 - Physical Exam General Appearance: alert, no apparent distress EENT: normal ENT inspection, No scleral icterus Respiratory: No accessory muscle use Abdomen: normal bowel sounds, non-tender, soft, other (lower abdominal pain resolved) Skin: normal color, warm/dry, No rash Neuro/Psych: alert, normal mood/affect, oriented x 3 - Time Spent With Patient Time Spent with Patient: greater than 25 minutes Time Spent with Patient: Greater than 25 minutes spent on this patients care, greater than 50% of time spent counseling, educating, and coordinating care regarding the above mentioned plan. ICD10 Worksheet Patient Problems: Problems Problem Status Onset Pelvic inflammatory disease (PID) Acute
[2017-10-05] MEDS: ONDANSETRON DISINTEGRATING 4 MG TAB PO PRN (12:44)
== END 2017-10-05 14:35 | disposition home or self-care (01) | DRG 759 ==
LOC: FOB 21:13
PROVIDERS: ADMIT Obstetrics & Gynecology; ATTEND Obstetrics & Gynecology
DX: N73.9 Female pelvic inflammatory disease, unspecified (principal)
CPT/HCPCS: 86708-90; 86709-90; 96365; G0472; J0694; J1170; J1885; J2405; J2550; Q9967